=== PATIENT | male | born 1965 ===

== ENCOUNTER 2016-12-30 09:03 | Emergency (ER) | payer OTHER ==
[2016-12-30 09:47] VITALS: BP 138/85
--- NOTE | 2016-12-30 10:00 | UC ---
Eye Complaint HPI - HPI Summary HPI Summary: pt presents with right upper eyelid swelling, erythema and tenderness X 3-4 days. Pt has history of styes and wears contacts. - History of Current Complaint Stated Complaint: RIGHT EYE COMPLAINT Time Seen by Provider: 12/30/16 09:51 Hx Obtained From: Patient Onset/Duration: Gradual Onset, Lasting Days Timing: Constant Severity Initially: Mild Severity Currently: Mild Location of Injury: Eye Lid (upper) Aggravating Factor(s): Other - touch Associated Signs And Symptoms: Positive: Swelling - right upper eye lid - Allergies/Home Medications Allergies/Adverse Reactions: Allergies Allergy/AdvReac Type Severity Reaction Status Date / Time hay fever Allergy Runny Nose Uncoded 12/30/16 09:48 PMH/Surg Hx/FS Hx/Imm Hx Previously Healthy: Yes Cardiovascular History Of: Denies: Pacemaker/ICD - Surgical History Surgical History: Yes Surgery Procedure, Year, and Place: r knee 08/2012 and 09/2016 3rd. TESTICULAR - VERICOSE VEIN WRAPPED AROUND THEM , AND ANOTHER SURGERY FOR UNDESCENDING TESTICLE. TONSILECTOMY. APPENDECTOMY. Rt KNEE ARTHROSCOPIC - 1981 - Social History Occupation: Employed Full-time Alcohol Use: Occasionally Substance Use Type: None Smoking Status (MU): Former Smoker Review of Systems Constitutional: Negative Skin: Negative Eyes: Other - right eye lid swelling ENT: Negative Respiratory: Negative Cardiovascular: Negative Gastrointestinal: Negative Genitourinary: Negative Motor: Negative Neurovascular: Negative Musculoskeletal: Negative Neurological: Negative Psychological: Negative All Other Systems Reviewed And Are Negative: Yes Physical Exam Triage Information Reviewed: Yes Appearance: Well-Appearing Vital Signs: Initial Vital Signs Temp 99.1 F 12/30/16 09:39 Pulse 87 12/30/16 09:39 Resp 18 12/30/16 09:39 BP 138/85 12/30/16 09:39 Vital Signs Reviewed: Yes Eye Exam: Other Eyes: Positive: Other: - right eye lid swelling and mild erythema ENT Exam: Normal Neck exam: Normal Respiratory Exam: Normal Cardiovascular Exam: Normal Musculoskeletal Exam: Normal Neurological Exam: Normal Psychological Exam: Normal Skin Exam: Other - right eye lid erythema, Eye Complaint Course/Dx - Differential Dx/Diagnosis Differential Diagnosis/HQI/PQRI: Conjunctivitis, Other - stye Provider Diagnoses: right eye lid stye Discharge - Discharge Plan Condition: Stable Disposition: HOME Prescriptions: Erythromycin OPHTH.OINT* [Ilotycin OPHTH.OINT*] 1 applic RIGHT EYE BEDTIME #1 ophth.oint Patient Education Materials: John (ED) Referrals: Shivani Garcia PA [Primary Care Provider] - If Needed (Please follow up with your PCP or return to clinic as needed. )
== END 2016-12-30 10:09 | disposition home or self-care (01) ==
LOC: UCCORT 09:03
DX: H00.013 Hordeolum externum right eye, unspecified eyelid (principal); Z87.891 Personal history of nicotine dependence
CPT/HCPCS: 99202; G0463

== ENCOUNTER 2017-04-21 21:37 | Emergency (ER) | payer OTHER ==
[2017-04-21 22:01] VITALS: BP 148/90
--- NOTE | 2017-04-21 22:22 | UC ---
Skin Complaint HPI - HPI Summary HPI Summary: pt presents with c/o swelling and purulent discharge from right middle finger. - History of Current Complaint Chief Complaint: UCSkin Time Seen by Provider: 04/21/17 22:18 Stated Complaint: INFECTED FINGER-RT HAND Hx Obtained From: Patient Onset/Duration: Gradual Onset, Lasting Days Timing: Constant Onset Severity: Mild Current Severity: Moderate Location: Discrete - right middle finger Character: Swelling, Redness, Raised, Painful Aggravating: Touch Alleviating: Nothing Associated Signs & Symptoms: Positive: Drainage - purulent, Tenderness - Allergy/Home Medications Allergies/Adverse Reactions: Allergies Allergy/AdvReac Type Severity Reaction Status Date / Time hay fever Allergy Runny Nose Uncoded 04/21/17 21:58 Home Medications: Home Medications Ibuprofen TAB* [Advil TAB*] 600 mg PO Q6H PRN 04/21/17 [History Confirmed ] Review of Systems Constitutional: Negative Skin: Other - swelling tenderness, erythema base of finger nail right middle finger Eyes: Negative ENT: Negative Respiratory: Negative Cardiovascular: Negative Gastrointestinal: Negative Genitourinary: Negative Motor: Negative Neurovascular: Negative Musculoskeletal: Edema - base of right middle fingernail Neurological: Negative Psychological: Negative All Other Systems Reviewed And Are Negative: Yes PMH/Surg Hx/FS Hx/Imm Hx Previously Healthy: Yes - Surgical History Surgical History: Yes Surgery Procedure, Year, and Place: r knee 08/2012, 2014 and 09/2016. TESTICULAR - VERICOSE VEIN WRAPPED AROUND THEM , AND ANOTHER SURGERY FOR UNDESCENDING TESTICLE. TONSILECTOMY. APPENDECTOMY. Rt KNEE ARTHROSCOPIC - 1981 - Family History Known Family History: Positive: Cardiac Disease - Social History Occupation: Employed Full-time Lives: With Family Alcohol Use: Weekly Substance Use Type: None Smoking Status (MU): Former Smoker Have You Smoked in the Last Year: No When Did the Patient Quit Smoking/Using Tobacco: 1985 Physical Exam Triage Information Reviewed: Yes Appearance: Well-Appearing Vital Signs: Initial Vital Signs Temp 97.9 F 04/21/17 21:52 Pulse 82 04/21/17 21:52 Resp 14 04/21/17 21:52 BP 148/90 04/21/17 21:52 Pulse Ox 97 04/21/17 21:52 Eye Exam: Normal Neck exam: Normal Respiratory Exam: Normal Cardiovascular Exam: Normal Musculoskeletal Exam: Normal Neurological Exam: Normal Psychological Exam: Normal Skin Exam: Other - paronychia right middle finger Course/Dx - Differential Diagnoses - Skin Complaint Differential Diagnoses: Cellulitis, Other - paronychia - Diagnoses Provider Diagnoses: paronychia. incision drainage of right middle fingernail paronychia Procedures - Incision and Drainage Site: right middle finger base of fingernail Instrument(s): Scalpel - #11, with small amount of purulent discharge. Discharge - Discharge Plan Condition: Stable Disposition: HOME Prescriptions: Cephalexin CAP* [Keflex 500 CAP*] 500 mg PO Q12H #14 cap Patient Education Materials: Paronychia (ED) Referrals: JAMES Edmondson [Primary Care Provider] - If Needed Additional Instructions: Please monitor for worsening infection including but not limited to increase in swelling, redness, tenderness, purulent drainage, fever or chills. PLase apply warm compresses and soak your finger in an epsom salt solution at least 3 times a day.
[2017-04-21] MEDS ORDERED: Cephalexin CAP* 500 MG PO ONE (22:24)
== END 2017-04-21 22:53 | disposition home or self-care (01) ==
LOC: UCCORT 21:37
DX: L03.011 Cellulitis of right finger (principal); Z87.891 Personal history of nicotine dependence
CPT/HCPCS: 10060; 99212; A9270-GY; G0463